=== PATIENT | male | born 1995 | race Caucasian/White ===

== ENCOUNTER 2017-08-11 12:42 | Emergency (ER) | payer BC ==
[~2017-08-11] VITALS: Ht 175.3 cm; Wt 72.7 kg
[2017-08-11 13:41] LABS: URINE APPEARANCE CLEAR; URINE BILIRUBIN NEGATIVE (NEGATIVE); URINE BLOOD NEGATIVE (NEGATIVE); URINE COLOR YELLOW; URINE GLUCOSE NEGATIVE (NEGATIVE); URINE KETONE NEGATIVE (NEGATIVE); URINE LEUKOCYTE ESTERASE NEGATIVE (NEGATIVE); URINE NITRATE NEGATIVE (NEGATIVE); URINE PROTEIN(semi-quant) NEGATIVE (NEGATIVE); URINE UROBILINOGEN NORMAL (NORMAL); URINE WBC 0-1 /hpf (0-3)
[2017-08-11 15:49] VITALS: BP 116/65
== END 2017-08-11 15:45 | disposition short-term general hospital (02) ==
LOC: ED 12:42
PROVIDERS: Physician Assistant
DX: K35.80 Unspecified acute appendicitis (principal)
CPT/HCPCS: Q9967

== ENCOUNTER → 2017-08-11 | Outpatient (CLI) | payer BC ==
[2011-07-06 18:18] VITALS: BP 124/68
[~2017-08-11] MED LIST: MULTIPLE VITAMI1 CAP PO
[2017-08-11 09:40] LABS: EOS # 0.3 (0.04-0.40); EOS % 1.7 % (0.0-4.0); HEMATOCRIT 44.7 % (36.0-47.0); LYMPH# 1.8 (1.50-4.00); MEAN CELL VOLUME 88 fl (78-95); MEAN CORPUSCULAR HEMOGLOBIN 31 pg (26-32); MEAN CORPUSCULAR HGB CONC 36 g/dL (33-37); MEAN PLATELET VOLUME 10.4 fl (7.4-10.4); MONO # 1.3 (0.20-0.80); PLATELET COUNT 274 K/mm3 (130-400); RED CELL DISTRIBUTION WIDTH 12.5 % (11.5-14.5); WHITE BLOOD COUNT 14.8 K/mm3 (4.8-10.8)
[2017-08-11 09:46] LABS: NEU # 11.5 (1.40-6.50)
[2017-08-11 09:48] LABS: ALBUMIN 4.5 g/dL (3.5-5.0); BUN/CREATININE RATIO 15.7 (6.0-26.0); CALCIUM 9.5 mg/dL (8.4-10.2); POTASSIUM 3.9 mmol/L (3.6-5.0); TOTAL BILIRUBIN 1.2 mg/dL (0.2-1.3); TOTAL PROTEIN 7.8 g/dL (6.3-8.2)
== END ==
LOC: LAB 09:14
PROVIDERS: Nurse Practitioner Family
DX: R11.11 Vomiting without nausea (principal); R10.813 Right lower quadrant abdominal tenderness; R19.7 Diarrhea, unspecified